=== PATIENT | male | born 1995 | race Two or more races ===

== ENCOUNTER 2020-11-22 12:12 | Emergency (ER) | payer MEDICAID ==
[~2020-11-22] VITALS: Ht 152.4 cm; Wt 45.4 kg
[~2020-11-22 12:12] MED LIST: DEXM10CA PO; GUAN1TAB8 PO; MIRT1TAB14 PO
[2020-11-22 13:23] LABS: Basophils # (auto) 0 10 ^3/uL (0-0.2); Basophils % (auto) 0.6 % (0.0-2.0); Eosinophils # (auto) 0.1 10 ^3/uL (0-0.8); Eosinophils % (auto) 0.8 % (0.0-7.0); Hematocrit 46.6 % (41.0-53.0); Hemoglobin 15.8 g/dL (13.5-17.5); Lymphocytes # (auto) 1.7 10 ^3/uL (0.4-5.4); Lymphocytes % (auto) 20.3 % (10.0-50.0); Mean Corpuscular Hemoglobin 32.8 pg (28.0-32.0); Mean Corpuscular Hgb Conc. 33.9 g/dL (32.0-36.0); Mean Corpuscular Volume 96.6 fL (80.0-100.0); Monocytes # (auto) 0.9 10 ^3/uL (0-1.3); Monocytes % (auto) 10.7 % (0.0-12.0); Neutrophils # (auto) 5.5 10 ^3/uL (1.6-8.6); Neutrophils % (auto) 67.6 % (37.0-80.0); Nucleated Red Blood Cells % 0.1 %; Platelet Count (auto) 310 10^3/uL (140-450); Red Blood Cells 4.82 10^6/uL (4.5-5.90); White Blood Cell 8.2 10^3/uL (4.4-10.8)
[2020-11-22 13:42] LABS: Calcium 8.5 mg/dL (8.5-10.1); Potassium 3.6 mmol/L (3.5-5.1)
[2020-11-22 13:45] LABS: BUN/Creatinine Ratio 7.5; Bilirubin, Total 1.1 mg/dL (0.2-1.0); Total Protein 8.1 g/dL (6.4-8.2)
[2020-11-22 15:31] VITALS: BP 167/95
[2020-11-22] MEDS ORDERED: ACETAMINOPHEN 325 MG TAB PO ONE (15:45)
[2020-11-22] MEDS ORDERED: IOHEXOL 300 MG/ML 100ML BOTTLE IJ ONE (15:52)
[2020-11-22] MEDS ORDERED: KETOROLAC TROMETH 30 MG/ML 1ML VIAL IV ONE (17:30)
== END 2020-11-22 17:55 | disposition home or self-care (01) ==
LOC: ER 12:12
DX: L72.0 Epidermal cyst (principal); B00.9 Herpesviral infection, unspecified; M54.2 Cervicalgia
CPT/HCPCS: 36415; 70491; 80053; 82150; 83690; 85025; 96374; 99285; J1885; Q9967